=== PATIENT | female | born 1940 | race Caucasian/White ===

== ENCOUNTER 2022-02-15 15:55 | Emergency (ER) | payer MEDICARE ==
[~2022-02-15 15:55] MED LIST: ALPRAZOLAM PO; COZAAR50 MG PO; ENBREL INJ; FOLIC ACID 1 MG1 MG PO; HYDROXYCHLOROQ200 MG PO; INDERAL TAB 1010 MG PO; METHOTREXATE2.5 MG PO; NORCO 5-325 TA1 EACH PO; VIBRAMYCIN100 MG PO; VIT D PO
[2022-02-15 17:46] LABS: RED BLOOD COUNT 3.4 M/UL (4.00-5.10); WHITE BLOOD COUNT 8.3 K/UL (4.5-11.0)
[2022-02-15] MEDS ORDERED: HYDROCODON-ACE1 EAC4 PO (20:20)
== END 2022-02-15 20:40 | disposition home or self-care (01) ==
LOC: ER1 15:55
PROVIDERS: Physician Assistant
DX: S52.032A Displaced fracture of olecranon process with intraarticular extension of left ulna, initial encounter for closed fracture (principal); S32.512A Fracture of superior rim of left pubis, initial encounter for closed fracture; N28.9 Disorder of kidney and ureter, unspecified; W19.XXXA Unspecified fall, initial encounter
CPT/HCPCS: 70450; 71045; 72192; 73080; 80053; 85025; 85610; 85730; 99284